=== PATIENT | male | born 2000 | race Caucasian/White ===

== ENCOUNTER 2022-07-26 08:11 | Emergency (ER) | payer OTHER ==
[2022-07-26] VITALS (12 sets, daily range): BP systolic 123–143; BP diastolic 61–96
[~2022-07-26] VITALS: Ht 182.9 cm; Wt 109.1 kg
[2022-07-26] MEDS ORDERED: OFLOXACIN0.3 % OD (09:01)
== END 2022-07-26 09:21 | disposition home or self-care (01) ==
LOC: ED 08:11
DX: T15.01XA Foreign body in cornea, right eye, initial encounter (principal); X58.XXXA Exposure to other specified factors, initial encounter